=== PATIENT | female | born 1945 | race Two or more races ===

== ENCOUNTER 2021-05-06 03:35 | Emergency (ER) | payer MEDICARE, MEDICAID ==
[~2021-05-06] VITALS: Ht 165.1 cm; Wt 105.0 kg
[2021-05-06] MEDS ORDERED: DiphenhydrAMINE HCL 50 MG/ML VIAL IVP STA (03:49)
[2021-05-06] MEDS ORDERED: ONDANSETRON HCL 4 MG/2 ML VIAL IVP ONE (04:00)
[2021-05-06] MEDS ORDERED: SODIUM CHLORIDE 0.9% 1,000 ML IV ONE (04:00)
[2021-05-06] MEDS ORDERED: FAMOTIDINE 10 MG/ML 2 ML VIAL IVP ONE (04:00)
[2021-05-06] MEDS ORDERED: PB/HYOSCY/ATR/SCOP/LIDO/MAALOX 55 ML BOTTLE PO ONE (04:00)
[2021-05-06] MEDS ORDERED: PARO10TA89 PO (04:07)
[2021-05-06] MEDS ORDERED: INSU300I SQ (04:07)
[2021-05-06] MEDS ORDERED: ONDA-104 PO (04:07)
[2021-05-06] MEDS ORDERED: DICY10 PO (04:07)
[2021-05-06] MEDS ORDERED: FLUT16H NASAL (04:07)
[2021-05-06] MEDS ORDERED: METO25 PO (04:07)
[2021-05-06] MEDS ORDERED: PANT-31 PO (04:07)
[2021-05-06] MEDS ORDERED: SITA100 PO (04:07)
[2021-05-06] MEDS ORDERED: OLOP5DRO14 OU (04:07)
[2021-05-06] MEDS ORDERED: LOPE2 PO (04:07)
[2021-05-06] MEDS ORDERED: INSU100V42 SQ (04:07)
[2021-05-06] MEDS ORDERED: GEMF600T90 PO (04:07)
[2021-05-06 04:10] LABS: GLUCOSE,POINT OF CARE 252 MG/DL (70-110)
[2021-05-06 04:23] LABS: BASOPHILS % (AUTO) 0.3 % (0.0-2.0); EOSINOPHILS % (AUTO) 0.3 % (1.0-6.0); HEMATOCRIT 32.8 % (36-46); HEMOGLOBIN 11.1 g/dL (12.0-16.0); LYMPHOCYTES # (AUTO) 0.3 K/uL (1.0-4.8); LYMPHOCYTES % (AUTO) 2.7 % (22.0-44.0); MEAN CORPUSCULAR HEMOGLOBIN 30.6 pg (26.0-34.0); MEAN CORPUSCULAR HGB CONC 33.8 G/dL (31.0-37.0); MEAN CORPUSCULAR VOLUME 91 fL (80-100); MONOCYTES # (AUTO) 0.1 K/uL (0.1-1.0); MONOCYTES % (AUTO) 0.9 % (2.0-9.0); NEUTROPHILS # (AUTO) 8.9 K/uL (1.8-7.7); PLATELET COUNT (AUTO) 257 K/uL (150-450); RED BLOOD CELL COUNT(AUTO) 3.62 MIL/uL (4.00-5.20); RED CELL DISTRIBUTION WIDTH 15.3 % (11.5-14.5)
[2021-05-06 04:32] LABS: POTASSIUM 5.3 mmol/L (3.5-5.1)
[2021-05-06 04:38] LABS: ALBUMIN 2.7 g/dL (3.4-5.0); BILIRUBIN,TOTAL 0.6 mg/dL (0.1-1.0); TOTAL PROTEIN, SERUM 7.5 g/dL (6.4-8.2)
[2021-05-06 04:51] LABS: CREATININE 3.49 mg/dL (0.60-1.30)
[2021-05-06 05:35] LABS: NEUTROPHILS % (AUTO) 95.8 % (40.0-70.0)
[2021-05-06 06:43] VITALS: BP 160/60
== END 2021-05-06 06:54 | disposition home or self-care (01) ==
LOC: EMS 03:35
DX: R10.32 Left lower quadrant pain (principal); R11.2 Nausea with vomiting, unspecified; R19.7 Diarrhea, unspecified; E11.21 Type 2 diabetes mellitus with diabetic nephropathy; I12.9 Hypertensive chronic kidney disease with stage 1 through stage 4 chronic kidney disease, or unspecified chronic kidney disease; E11.22 Type 2 diabetes mellitus with diabetic chronic kidney disease; N18.4 Chronic kidney disease, stage 4 (severe)
CPT/HCPCS: 36415; 80053; 82962; 83690; 84484; 85025; 93005; 96361; 96374; 96375; 99284; J1200; J2405; J3490; J7030